=== PATIENT | female | born 1965 | race Caucasian/White ===

== ENCOUNTER → 2021-03-27 | Outpatient (REF) ==
--- NOTE | 2021-03-27 13:18 | REP ---
INDICATION: DDD Nontraumatic hip pain. COMPARISON: None. TECHNIQUE: Frontal view of the pelvis with neutral and frog lateral views of the right and left hip hip. FINDINGS: Pelvis demonstrates anethopathy along the iliac crests. Dip joints are symmetric and demonstrate early moderate degenerative changes including sclerosis along the acetabular roof with joint space narrowing and marginal spurring. No acute fracture or dislocation. Surrounding soft tissues are normal. No periarticular loose bodies. IMPRESSION: Moderate symmetric degenerative changes. <Electronically signed by Venkata Austin > 03/27/21 [id number]
== END ==
LOC: M RAD 12:08
PROVIDERS: ATTEND Internal Medicine
DX: M16.0 Bilateral primary osteoarthritis of hip (principal)